=== PATIENT | male | born 1965 | race Caucasian/White ===

== ENCOUNTER 2023-06-07 23:09 | Emergency (ER) | payer OTHER, SELFPAY ==
[2023-06-07 23:10] VITALS: BP 143/91; PULSE 68; RESP 17; TEMP 35.9; O2SAT 97; BMI 34.0
--- NOTE | 2023-06-07 23:16 | RAD_ITS ---
INDICATION: chest pain EXAMINATION/TECHNIQUE: X-RAY - portable upright AP chest x-ray COMPARISON: None. FINDINGS: LINES/DEVICES: None. LUNGS: No consolidation, edema or effusion. No pneumothorax. MEDIASTINUM AND CARDIOVASCULAR STRUCTURES: Cardiac silhouette not enlarged. Central airways and mediastinal contour are unremarkable. BONES AND SOFT TISSUES: Unremarkable. RAD/Chest 1 View (Portable) IMPRESSION: No radiographic evidence of acute cardiopulmonary disease. Electronically Signed: Danial Wright MD at 23:56 EDT ,
--- NOTE | 2023-06-07 23:16 | ED.VIS.CHEST ---
HPI History of Present Illness Chief Complaint: Chest Pain Detail of Chief Complaint: Central, heartburn Informant: patient and spouse/S.O. Onset/Context/Timing Onset: Hours (0.33) Activity at onset: sudden Timing: Intermittent (Duration approximately 20-25 minutes.) Quality: Positive for Burning Location: Substernal Current Severity: Gone Maximum Severity: Moderate Worsened By: Nothing Relieved By: Nothing Associated Symptoms: Positive for Lightheadedness; Negative for Nausea, Vomiting, Diaphoresis, Dyspnea, Cough, Fever, Acid Reflux or Palpitations Narrative Narrative: Is a 57-year-old male. He was awakened from sleep because of heartburn located the center of his chest. He denied any sour taste in the back of his throat. This is never happened before. He has no significant past medical history. He is on psychiatric meds. His brother recently at the age of 57 from a myocardial infarction. He is a non-smoker. He has no history of VTE. He denies leg pain, swelling or discoloration. He denies symptoms of claudication. He denies history of hiatal hernia, GERD or peptic ulcer disease. He denies black or maroon-colored stool. He denied radiation of the discomfort. Review of prior records indicates the patient has history of hyperlipidemia. Patient denied this will verify. Prior Similar Symptoms: Yes (Per lasted brief time a significant time ago and occurred while awake.) Recent Illness/Hospitalization: No CVD Risk Factors: Negative for Hypertension, Diabetes, Hypercholesterolemia, Family History 1' </=55 or Smoking PE Risk Factors: Negative for Recent Travel/Surgery, Recent Immobilization, Prior DVT or PE or Cancer TAD Risk Factors: Negative for Marfan's Syndrome, Hypertension or Family History [facility] Medical History Hyperlipemia Home Medications famotidine 20 mg tablet (Pepcid) 20 mg PO BID #30 tabs 06/08/23 [Rx Last Taken Unknown] Allergy/AdvReac Type Severity Reaction Status Date / Time No Known Allergies Allergy Verified 06/07/23 23:13 Family History (Updated 06/07/23 @ 23:[address] Kofi Devlin MD) Brother Myocardial infarction Social History (Updated 06/07/23 @ 23:[address] Kofi Devlin MD) household members: spouse Smoking Status: Never smoker ROS ROS ED Constitutional Constitutional ED: Denies chills, fever(s) or subjective Eyes Eyes: Reports none ENT ENT ED: Denies ear pain or rhinorrhea Cardiovascular Cardiovascular: Reports as per HPI; Denies orthopnea or paroxysmal nocturnal dyspnea Respiratory/Chest Respiratory/Chest: Denies cough, dyspnea, dyspnea on exertion, orthopnea or paroxysmal nocturnal dyspnea Gastrointestinal Gastrointestinal: Denies abdominal pain, nausea or vomiting Genitourinary Genitourinary ED: Denies dysuria, hematuria or urinary frequency Musculoskeletal Musculoskeletal: Denies arthralgias, back pain, myalgias or neck pain Integumentary Denies rash Neurologic Neurologic: Denies headache(s) or paresthesias Psychiatric Psychiatric: Denies anxiety or depression Endocrine Endocrinology: Denies cold intolerance or heat intolerance Hematologic/Lymphatic Hematologic/Lymphatic: Denies easy bleeding or easy bruising EXAM Physical Exam Const Vital Signs: 06/07/23 23:10 06/07/23 23:10 06/07/23 23:26 Temperature 96.6 F L Temperature Source Temporal Pulse Rate 68 Respiratory Rate 17 Respiratory Effort Normal Non-Labored Blood Pressure 143/91 H Blood Pressure Mean 108 Pulse Ox 97 98 Oxygen Delivery Method Room Air Room Air 06/08/23 00:00 06/08/23 01:00 EDT Temperature Temperature Source Pulse Rate 66 59 L Respiratory Rate 23 H 9 L Respiratory Effort Blood Pressure 130/78 H 124/75 H Blood Pressure Mean 95 91 Pulse Ox 92 92 Oxygen Delivery Method Room Air Room Air Positive well nourished, well developed and obese General Appearance ED: well developed and NAD; Negative for pallor Nutritional Appearance: obese HEENT Reports TM's clear and moist mucous membranes normocephalic and atraumatic Tympanic Membrane ED: Yes TM's clear Eyes PERRL and EOMs intact bilaterally General Eye ED: Negative for pale conjunctiva or scleral icterus Neck no lymphadenopathy, supple and no JVD Chest Wall inspection of chest normal and palpation of chest normal Resp normal respiratory effort and clear to auscultation bilaterally Cardio regular rate, regular rhythm, S1 normal heart sound, S2 normal heart sound and no murmurs Peripheral Pulses: pulses 2+ throughout GI normal to inspection, nondistended, normoactive bowel sounds, soft to palpation, non-tender, non-distended and no masses; Negative for hepatosplenomegaly Back/Spine no CVA tenderness and no thoracic nor lumbar tenderness Extremity normal to inspection Extremity Narrative: There is no asymmetry, swelling, discoloration, leg vein distention, palpable cords or tenderness along the distribution of the deep venous system. General Extremety ED: Negative for edema or pulses abnormal General Extremity: Negative for edema or pulses abnormal Neuro oriented x3 and CN's II-XII intact bilaterally Sensorium / Orientation: awake and alert Psych mental status grossly normal Skin no rashes or lesions noted and no wounds General Skin Exam: Negative for jaundice or pallor Heart Score History: Slightly/Non-Suspicious ECG: Normal Age: >45 - <65 years Risk Factors: 1 or 2 Risk Factors Score: 2 MDM MDM MDM Narrative Medical decision making narrative: Diagnosis with food reflux, esophagitis, esophageal spasm, cardiac ischemia, hiatal hernia, peptic ulcer disease and doubt pulmonary etiology. Doubt biliary colic/cholecystitis. History & Record Review Discussion w/independent historian: Patient and Family Additional record(s) reviewed:: No prior records Lab Data Attestation: I reviewed the patient's lab results. Lab results narrative: CBC is unremarkable basic metabolic panel is unremarkable. Glucose slight elevated 120 with normal CO2 anion gap. First troponin is normal at 6. Patient was informed that a repeat troponin was ordered for 2 hours from the time of the first draw. Troponin is 6. Both are less than 7 and delta is 0. Negative predictive value for cardiac disease is 100%. Therefore will discharge to home. Labs: Laboratory Results - last 24 hr 06/07/23 06/08/23 23:20 01:28 EST WBC 6.6 RBC 4.50 L Hgb 13.6 Hct 41.1 MCV 91.3 MCH 30.2 MCHC 33.1 RDW Std Deviation 40.9 RDW Coeff of Vic 12.4 Plt Count 262 MPV 9.8 Immature Gran % (Auto) 0.300 Neut % (Auto) 54.4 Lymph % (Auto) 33.3 [place] % (Auto) 8.5 Eos % (Auto) 2.6 Baso % (Auto) 0.9 Absolute Neuts (auto) 3.6 Absolute Lymphs (auto) 2.19 Nucleated RBC % 0 Sodium 141 Potassium 3.3 L Chloride 109 H Carbon Dioxide 28.0 Anion Gap 4 L BUN 23 H Creatinine 0.97 Estim Creat Clear Calc 93.33 Est GFR (MDRD) Af Amer 103 Est GFR (MDRD) Non-Af 85 BUN/Creatinine Ratio 23.7 H Glucose 120 H Calcium 8.6 Troponin I High Sens 6 6 Radiography Chest X-Ray - ED: 1 View (Review portable chest x-rays independent reviewed interpreted by me at 2355 as negative. Cardiac silhouette and size normal. Lung parenchyma normal. Perihilar region normal. Osseous structures are unremarkable.) Diagnostic Testing: Clinical Impression(s) from Imaging Studies Chest X-Ray 06/07/23 23:16 IMPRESSION: No radiographic evidence of acute cardiopulmonary disease. Electronically Signed: Danial Wright MD at 23:56 EDT , EKG Initial EKG: Attestation: I personally reviewed and interpreted this EKG as follows: Interpretation: Sinus Rhythm (Normal sinus rhythm rate of 66. EKG is normal. DC interval is 172 ms. Cures duration 84 ms. QT durations are 94 ms. [place] is normal) Treatment and Re-Evaluation :: It was informed at 0103 that his test were negative and has a 100% negative predictive value for cardiac disease. He will be discharged to home. This most likely represented GI source. Discharge Plan Triage Chief Complaint: Chest Pain ED Provider: Kofi Devlin Dx/Rx/DC Orders Clinical Impression: Burning chest pain Instructions: ED Chest Pain, Noncardiac Prescriptions: New famotidine [Pepcid] 20 mg tablet 20 mg PO BID Qty: 30 0RF Primary Care Provider: Corky Toscano Referrals: Corky Toscano MD [Primary Care Provider] - 5-7 Days Disposition Disposition: Home, Self Care
[2023-06-07 23:26] VITALS: O2SAT 98
[2023-06-07] MEDS: Aspirin 81 MG TAB.CHEW 324 MG PO (23:26)
[2023-06-07 23:29] LABS: Absolute Lymphocyte Count 2.19 X10^3/uL (0.83-4.51); Absolute Neutrophil Count 3.6 X10^3/uL (2.0-7.7); Basophil# 0.06 X10^3/uL; Basophil% 0.9 % (0-1); Eosinophil# 0.17 X10^3/uL; Eosinophils% 2.6 % (0-5); Hematocrit 41.1 % (40-54); Hemoglobin 13.6 g/dL (13.0-16.5); Lymphocyte # 2.19 X10^3/ul (0.83-4.51); Lymphocyte % 33.3 % (19-41); Mean Corp Hgb Conc 33.1 g/dL (32-36); Mean Corpuscular Hgb 30.2 pg (27.0-32.0); Mean Corpuscular Volume 91.3 fL (80-94); Mean Platelet Vol. 9.8 fl (6.2-12.0); Monocyte# 0.56 X10^3/uL; Monocyte% 8.5 % (0-10); NRBC Flagged by Analyzer 0 % (0-5); Neutrophil # 3.58 X10^3/uL (2.7-7.7); Neutrophil % 54.4 % (47-70); Platelet Count 262 K/mm3 (150-450); RBC Distribution Width CV 12.4 % (11.6-14.6); RBC Distribution Width SD 40.9 fl (35.1-43.9); White Blood Count 6.6 K/mm3 (4.4-11.0)
--- NOTE | 2023-06-07 23:30 | EKG12_ITS ---
Test Reason : cp Blood Pressure : / mmHG Vent. Rate : 066 BPM Atrial Rate : 066 BPM P-R Int : 172 ms QRS Dur : 084 ms QT Int : 394 ms P-R-T Axes : 052 066 072 degrees QTc Int : 413 ms Normal sinus rhythm Normal ECG Confirmed by SUKI MCGINNIS, AMARILYS ([id number]), editorial cartoonist SHEBA WOODALL ([id number]) on 06/16/2023 7:03:28 AM Referred By: Claus Confirmed By:BRE COHN MD
[2023-06-08] VITALS: BP 130/78; PULSE 66; RESP 23; O2SAT 92
[2023-06-08] LABS: Anion Gap 4 (5-15); BUN 23 mg/dL (7-18); BUN/Creat Ratio 23.7 RATIO (10-20); Calcium,Total 8.6 mg/dL (8.5-10.1); Chloride 109 mmol/L (98-107); Creatinine, Serum 0.97 mg/dL (0.70-1.30); EST Glomerular Filtration Rate 85 mL/min (>60); Est Glom Filt Rate - Afr Amer 103 mL/min (>60); Estimated Creatinine Clearance 93.33 ml/min; Glucose 120 mg/dL (74-106); Potassium 3.3 mmol/L (3.5-5.1); Sodium Level 141 mmol/L (136-145); Troponin-I HS (w/2H Reflex) 6 pg/mL (3.0-78.0)
[2023-06-08 01:00] VITALS: BP 124/75; PULSE 59; RESP 9; O2SAT 92
[2023-06-08 01:13] VITALS: BP 121/79; PULSE 64; RESP 16; O2SAT 98
[2023-06-08 01:24] LABS: Reflex Troponin-HS? (from REC) Y
[2023-06-08 01:53] LABS: Troponin-I HS 6 pg/mL (3.0-78.0)
== END 2023-06-08 01:15 | disposition home or self-care (01) ==
PROVIDERS: Emergency Provider Emergency Medicine; PCP Family Medicine; Visit Provider Emergency Medicine
DX: R07.9 Chest pain, unspecified (principal); E78.5 Hyperlipidemia, unspecified
CPT/HCPCS: 71045; 80048; 84484; 85025; 93005; 99284; A4216